=== PATIENT | female | born 1955 | race Hispanic/Latino ===

== ENCOUNTER 2018-02-22 07:35 | Day surgery (SDC) | payer MEDICARE ==
[~2018-02-22] VITALS: Ht 149.9 cm; Wt 71.7 kg
[~2018-02-22 07:35] MED LIST: ASPI-1005 PO; CALC667C4 PO; LACT10SO PO; LORA0.5T2 PO; METO50 PO; MINO2.5T3 PO; PANT20TA12 PO; SILD20TA14 PO; SODIUM CHLORIDE 0.9% 1000ML 1,000 ML IV ONE; VITA100C24 PO; VITA1CAP85 PO
[2018-02-22 08:29] VITALS: BP 163/74
[2018-02-22] MEDS ORDERED: PROPOFOL 10 MG/ML 20ML VIAL IV ONE (09:47)
[2018-02-22 10:02] LABS: CREATININE 7.8 mg/dL (0.5-1.5); POTASSIUM 5.1 mmol/L (3.5-5.1)
[2018-02-22 10:48] VITALS: BP 104/37
[2018-02-22 10:53] VITALS: BP 103/57
[2018-02-22 10:57] VITALS: BP 116/47
== END 2018-02-22 11:23 | disposition home or self-care (01) ==
LOC: ENDO 07:35 → DAH 07:35 → ENDO 11:23
PROVIDERS: ATTEND Internal Medicine Gastroenterology
DX: K29.50 Unspecified chronic gastritis without bleeding (principal); K21.9 Gastro-esophageal reflux disease without esophagitis; F32.9 Major depressive disorder, single episode, unspecified; F41.9 Anxiety disorder, unspecified; J45.909 Unspecified asthma, uncomplicated; I12.0 Hypertensive chronic kidney disease with stage 5 chronic kidney disease or end stage renal disease; N18.6 End stage renal disease; D64.9 Anemia, unspecified; K70.31 Alcoholic cirrhosis of liver with ascites; K76.6 Portal hypertension; K31.89 Other diseases of stomach and duodenum; K31.819 Angiodysplasia of stomach and duodenum without bleeding; K25.9 Gastric ulcer, unspecified as acute or chronic, without hemorrhage or perforation; Z86.73 Personal history of transient ischemic attack (TIA), and cerebral infarction without residual deficits; Z68.31 Body mass index [BMI] 31.0-31.9, adult; Z98.890 Other specified postprocedural states; Z79.899 Other long term (current) drug therapy; Z86.010 Personal history of colon polyps; Z79.82 Long term (current) use of aspirin
CPT/HCPCS: 36415; 43239; 80048; 82948; 84132; 88305; 88342; 93005; A4606; J2704; J7030

== ENCOUNTER → 2018-08-23 | Outpatient (CLI) | payer MEDICARE ==
[~2018-08-23] MED LIST changes: -SODIUM CHLORIDE 0.9% 1000ML 1,000 ML IV ONE
== END | disposition home or self-care (01) ==
LOC: SHCH 13:04
PROVIDERS: ATTEND Internal Medicine Cardiovascular Disease
DX: I08.3 Combined rheumatic disorders of mitral, aortic and tricuspid valves (principal); I11.9 Hypertensive heart disease without heart failure; I27.20 Pulmonary hypertension, unspecified
CPT/HCPCS: 93306

== ENCOUNTER → 2018-08-30 | Outpatient (CLI) | payer MEDICARE ==
[~2018-08-30] VITALS: Ht 149.9 cm; Wt 69.9 kg
[~2018-08-30] MED LIST changes: +REGADENOSON 0.4 MG/5 ML PF SYG IVP ONE; +REGADENOSON 0.4 MG/5 ML PF SYG IVP SCH
== END | disposition home or self-care (01) ==
LOC: SHCH 11:10
PROVIDERS: ATTEND Internal Medicine Cardiovascular Disease
DX: I10 Essential (primary) hypertension (principal)
CPT/HCPCS: 78452; 93017; 96374; A9500 ×2; J2785

== ENCOUNTER → 2020-02-01 | Outpatient (CLI) | payer MEDICARE ==
[~2020-02-01] MED LIST changes: +METO-391 PO; -PANT20TA12 PO; +PANT20TA18 PO; -REGADENOSON 0.4 MG/5 ML PF SYG IVP ONE; -REGADENOSON 0.4 MG/5 ML PF SYG IVP SCH; +ROPI0.5T7 PO; +calcium PO
== END ==
LOC: DAH 10:00 → EDSTATUS 02-06 07:00
PROVIDERS: ATTEND Internal Medicine Gastroenterology
DX: K92.1 Melena (principal); Z20.828 Contact with and (suspected) exposure to other viral communicable diseases; D62 Acute posthemorrhagic anemia; Z53.8 Procedure and treatment not carried out for other reasons
CPT/HCPCS: C9803; U0003

== ENCOUNTER 2020-07-25 05:37 | Inpatient (IN) | payer MEDICARE ==
[~2020-07-25 05:37] MED LIST changes: -ASPI-1005 PO; -CALC667C4 PO; -LACT10SO PO; +LACT10SO5 PO; -METO50 PO; -MINO2.5T3 PO; -SILD20TA14 PO; -VITA100C24 PO; +VITA100C26 PO; -VITA1CAP85 PO
[2020-07-25 06:11] LABS: BASOPHILS % (AUTO) 0.7 % (0.0-5.0); HEMATOCRIT 25.2 % (36-48); LYMPHOCYTES % (AUTO) 3.9 % (21.0-51.0); MEAN CORPUSCULAR HEMOGLOBIN 30.4 pg (27.0-33.0); MEAN CORPUSCULAR HGB CONC 31.3 g/dL (32.0-36.0); MEAN CORPUSCULAR VOLUME 96.9 fL (79-99); MONOCYTES % (AUTO) 18.1 % (3.0-13.0); PLATELET COUNT (AUTO) 145 K/uL (130-400); RED CELL DISTRIBUTION WIDTH 15.9 % (11.0-15.5); WHITE BLOOD COUNT (AUTO) 5.9 K/uL (4.8-10.8)
[2020-07-25 06:30] LABS: ALBUMIN 3.3 g/dL (3.5-5.0); BILIRUBIN,TOTAL 1.3 mg/dL (0.2-1.0); CREATININE 6.6 mg/dL (0.5-1.5); POTASSIUM 4.1 mmol/L (3.5-5.1); TOTAL PROTEIN, SERUM 6.3 g/dL (6.0-8.3)
[2020-07-25] MEDS ORDERED: ASPIRIN 81MG CHEW TAB ONE (09:07)
[2020-07-25 10:24] LABS: AMPHET/METH SCREEN,URINE NEGATIVE (NEGATIVE); BARBITURATE SCREEN, URINE NEGATIVE (NEGATIVE); BENZODIAZEPINES SCREEN,URINE NEGATIVE (NEGATIVE); CANNABINOID SCREEN,URINE NEGATIVE (NEGATIVE); COCAINE SCREEN,URINE NEGATIVE (NEGATIVE); OPIATE SCREEN,URINE NEGATIVE (NEGATIVE); PHENCYCLIDINE SCREEN,URINE NEGATIVE (NEGATIVE)
[2020-07-25] MEDS ORDERED: ASPIRIN 81MG CHEW TAB PO SCH (10:27)
[2020-07-25 14:27] LABS: ABG BASE EXCESS 2.6 mmol/L (-2.0-3.0); ABG OXYGEN SATURATION 92.1 % (95.0-99.0); ABG PCO2 41 mmHg (32-45)
[2020-07-25] MEDS: HEPARIN 5,000 UNIT VIAL SQ SCH (16:15)
[2020-07-25] MEDS: LACTULOSE 20 GM/30 ML UDCUP PO SCH (16:15)
[2020-07-25] MEDS ORDERED: ZOSYN 3.375GM+NS 50ML 50 ML IV ONE (18:25)
[2020-07-25] MEDS ORDERED: ACETAMINOPHEN 650 MG SUPPOSITORY RC ONE (18:26)
[2020-07-25 23:30] VITALS: BP 127/56
[2020-07-26] MEDS: LACTULOSE 20 GM/30 ML UDCUP PO SCH ×3 (01:55→18:08)
[2020-07-26] MEDS: HEPARIN 5,000 UNIT VIAL SQ SCH ×3 (02:13→18:09)
[2020-07-26 04:00] VITALS: BP 138/58
[2020-07-26 04:05] LABS: HEMATOCRIT 23.5 % (36-48); MEAN CORPUSCULAR HGB CONC 31.5 g/dL (32.0-36.0); MEAN CORPUSCULAR VOLUME 95.1 fL (79-99); PLATELET COUNT (AUTO) 157 K/uL (130-400); RED BLOOD CELL COUNT(AUTO) 2.47 MIL/uL (4.00-5.50); RED CELL DISTRIBUTION WIDTH 16.7 % (11.0-15.5); WHITE BLOOD COUNT (AUTO) 4.1 K/uL (4.8-10.8)
[2020-07-26 04:31] LABS: PHOSPHORUS 6.2 mg/dL (2.5-4.9); POTASSIUM 4.4 mmol/L (3.5-5.1)
[2020-07-26 04:41] LABS: CREATININE 8.4 mg/dL (0.5-1.5)
[2020-07-26 04:42] LABS: BASOPHILS % (MANUAL) 1 % (0-2); EOSINOPHILS % (MANUAL) 5 % (1-6); LYMPHOCYTES % (MANUAL) 6 % (22-44); MAN.DIFF COMMENT-IMPRESSION MANUAL DIFFERENTIAL; MONOCYTES % (MANUAL) 14 % (2-9); SEGMENTED NEUTROPHILS % 74 % (40-70)
[2020-07-26 08:55] VITALS: BP 134/63
[2020-07-26 13:17] VITALS: BP 120/53
[2020-07-26 16:00] VITALS: BP 114/41
[2020-07-26 20:00] VITALS: BP 115/41
[2020-07-26] MEDS: TRAMADOL HCL 50 MG TABLET PO PRN (21:05)
[2020-07-27] VITALS: BP 105/47
[2020-07-27] MEDS: LACTULOSE 20 GM/30 ML UDCUP PO SCH ×2 (00:15→07:49)
[2020-07-27] MEDS: HEPARIN 5,000 UNIT VIAL SQ SCH ×3 (01:01→16:23)
[2020-07-27 04:00] VITALS: BP 186/80
[2020-07-27 05:03] LABS: BASOPHILS % (AUTO) 1.1 % (0.0-5.0); EOSINOPHILS % (AUTO) 3.8 % (0.0-8.0); HEMATOCRIT 26.7 % (36-48); LYMPHOCYTES % (AUTO) 8.5 % (21.0-51.0); MEAN CORPUSCULAR HEMOGLOBIN 30.1 pg (27.0-33.0); MEAN CORPUSCULAR HGB CONC 30.7 g/dL (32.0-36.0); MEAN CORPUSCULAR VOLUME 98.2 fL (79-99); MONOCYTES % (AUTO) 23.6 % (3.0-13.0); NEUTROPHILS % (AUTO) 62.8 % (40.0-77.0); PLATELET COUNT (AUTO) 171 K/uL (130-400); RED BLOOD CELL COUNT(AUTO) 2.72 MIL/uL (4.00-5.50); RED CELL DISTRIBUTION WIDTH 17.5 % (11.0-15.5); WHITE BLOOD COUNT (AUTO) 4.5 K/uL (4.8-10.8)
[2020-07-27 05:26] LABS: ALBUMIN 3.3 g/dL (3.5-5.0); BILIRUBIN,TOTAL 1.3 mg/dL (0.2-1.0); CREATININE 6.2 mg/dL (0.5-1.5); POTASSIUM 3.9 mmol/L (3.5-5.1); TOTAL PROTEIN, SERUM 6.5 g/dL (6.0-8.3)
[2020-07-27] MEDS ORDERED: KETOROLAC 30MG VIAL (30MG/ML) ONE (05:40)
[2020-07-27] MEDS ORDERED: KETOROLAC 15MG/ML VIAL (15MG/ML) IV ONE (05:45)
[2020-07-27] MEDS: TRAMADOL HCL 50 MG TABLET PO PRN ×2 (07:47→20:53)
[2020-07-27 08:00] VITALS: BP 135/45
[2020-07-27 11:58] VITALS: BP 124/51
[2020-07-27] MEDS ORDERED: ONDANSETRON 4MG INJ IVP PRN (13:15)
[2020-07-27 16:00] VITALS: BP 104/53
[2020-07-27 19:00] VITALS: BP 131/63
[2020-07-27] MEDS: DOCUSATE SODIUM 100 MG CAP PO SCH (20:51)
[2020-07-27] MEDS: SENNOSIDES 8.6 MG TABLET PO SCH (20:51)
[2020-07-28] VITALS: BP 147/58
[2020-07-28] MEDS ORDERED: CLONAZEPAM 1MG TAB PO ONE (00:15)
[2020-07-28] MEDS ORDERED: CLONAZEPAM 0.5 MG TABLET ONE (00:29)
[2020-07-28] MEDS: HEPARIN 5,000 UNIT VIAL SQ SCH ×2 (00:35→08:00)
[2020-07-28 04:00] VITALS: BP 140/64
[2020-07-28] MEDS ORDERED: LACTULOSE 20 GM/30 ML UDCUP PO SCH ×2 (05:00→10:30)
[2020-07-28 05:31] LABS: BASOPHILS % (AUTO) 1.4 % (0.0-5.0); EOSINOPHILS % (AUTO) 6.9 % (0.0-8.0); HEMATOCRIT 23.3 % (36-48); LYMPHOCYTES % (AUTO) 12.2 % (21.0-51.0); MEAN CORPUSCULAR HGB CONC 30.5 g/dL (32.0-36.0); MEAN CORPUSCULAR VOLUME 98.3 fL (79-99); MONOCYTES % (AUTO) 23.6 % (3.0-13.0); NEUTROPHILS % (AUTO) 55.6 % (40.0-77.0); PLATELET COUNT (AUTO) 137 K/uL (130-400); RED BLOOD CELL COUNT(AUTO) 2.37 MIL/uL (4.00-5.50); RED CELL DISTRIBUTION WIDTH 17.3 % (11.0-15.5); WHITE BLOOD COUNT (AUTO) 2.9 K/uL (4.8-10.8)
[2020-07-28 05:52] LABS: BILIRUBIN,TOTAL 1.1 mg/dL (0.2-1.0); CREATININE 7.4 mg/dL (0.5-1.5); POTASSIUM 4.2 mmol/L (3.5-5.1)
[2020-07-28 06:21] LABS: BASOPHILS % (MANUAL) 3 % (0-2); EOSINOPHILS % (MANUAL) 8 % (1-6); LYMPHOCYTES % (MANUAL) 9 % (22-44); MAN.DIFF COMMENT-IMPRESSION MANUAL DIFFERENTIAL; MONOCYTES % (MANUAL) 29 % (2-9); REACTIVE LYMPHOCYTES 1 % (0-0); SEGMENTED NEUTROPHILS % 50 % (40-70)
[2020-07-28] MEDS: SENNOSIDES 8.6 MG TABLET PO SCH (08:02)
[2020-07-28] MEDS: DOCUSATE SODIUM 100 MG CAP PO SCH (08:02)
[2020-07-28] MEDS ORDERED: METO25TA6 PO (08:45)
[2020-07-28] MEDS ORDERED: ASPI-1197 PO (10:12)
[2020-07-28] MEDS ORDERED: ROPINIROLE HCL 0.25 MG TABLET PO SCH (10:29)
[2020-07-28] MEDS ORDERED: METOPROLOL TARTRATE 25 MG TAB PO SCH (10:29)
[2020-11-03] MEDS ORDERED: RIFA500P4 MC (10:12)
== END 2020-07-28 11:44 | disposition home or self-care (01) | DRG 70 ==
LOC: EDH 05:37 → EDHIP 07:25 → OBSVTOIN 07:25 → 4BH 23:36
PROVIDERS: ADMIT Internal Medicine; ATTEND Internal Medicine
PROC: 5A1D70Z Performance of Urinary Filtration, Intermittent, Less than 6 Hours Per Day (ICD-10-PCS; principal; 2020-07-26)
DX: G93.41 Metabolic encephalopathy (principal); N18.6 End stage renal disease; I12.0 Hypertensive chronic kidney disease with stage 5 chronic kidney disease or end stage renal disease; R74.8 Abnormal levels of other serum enzymes; K74.60 Unspecified cirrhosis of liver; F41.9 Anxiety disorder, unspecified; I44.0 Atrioventricular block, first degree; D64.9 Anemia, unspecified; E11.22 Type 2 diabetes mellitus with diabetic chronic kidney disease; I25.10 Atherosclerotic heart disease of native coronary artery without angina pectoris; W19.XXXA Unspecified fall, initial encounter; Y93.89 Activity, other specified; Y92.090 Kitchen in other non-institutional residence as the place of occurrence of the external cause; Y99.8 Other external cause status; Z99.2 Dependence on renal dialysis; Z88.5 Allergy status to narcotic agent; Z83.3 Family history of diabetes mellitus; Z82.0 Family history of epilepsy and other diseases of the nervous system; Z82.3 Family history of stroke; Z82.5 Family history of asthma and other chronic lower respiratory diseases; Z80.9 Family history of malignant neoplasm, unspecified; Z82.49 Family history of ischemic heart disease and other diseases of the circulatory system
CPT/HCPCS: 36415; 36600; 70450; 73560; 74018; 76705; 80048; 80053; 80305; 82140; 82550; 82803; 83735; 84100; 84484; 85025; 86850; 86900; 86901; 86923; 90935; 93005; 93306; 93356; 93971; G0378; J1644; J1885; J2405; J2543

== ENCOUNTER 2020-11-02 14:05 | Inpatient (IN) | payer MEDICARE ==
[~2020-11-02] VITALS: Ht 154.9 cm; Wt 64.9 kg
[2020-11-02] VITALS (7 sets, daily range): BP systolic 124–198; BP diastolic 38–92
[~2020-11-02 14:05] MED LIST changes: +ASPI-1197 PO; -METO-391 PO; +METO25TA6 PO
[2020-11-02] MEDS ORDERED: PREDNISONE 20 MG TABLET ONE (15:29)
[2020-11-02] MEDS ORDERED: ACETAMINOPHEN 325 MG TAB ONE (15:29)
[2020-11-02 15:52] LABS: BASOPHILS % (AUTO) 1.3 % (0.0-5.0); EOSINOPHILS % (AUTO) 3.5 % (0.0-8.0); LYMPHOCYTES % (AUTO) 11.7 % (21.0-51.0); MEAN CORPUSCULAR HEMOGLOBIN 32.4 pg (27.0-33.0); MEAN CORPUSCULAR HGB CONC 28.2 g/dL (32.0-36.0); MEAN CORPUSCULAR VOLUME 114.8 fL (79-99); MONOCYTES % (AUTO) 16.1 % (3.0-13.0); NEUTROPHILS % (AUTO) 67.2 % (40.0-77.0); NUCLEATED RED BLOOD CELLS 0.4 % (0.0-0.19); PLATELET COUNT (AUTO) 208 K/uL (130-400); RED BLOOD CELL COUNT(AUTO) 1.82 MIL/uL (4.00-5.50); RED CELL DISTRIBUTION WIDTH 20.3 % (11.0-15.5); WHITE BLOOD COUNT (AUTO) 4.6 K/uL (4.8-10.8)
[2020-11-02 15:54] LABS: HEMATOCRIT 20.9 % (36-48)
[2020-11-02 16:07] LABS: CREATININE 6.4 mg/dL (0.5-1.5); POTASSIUM 4.4 mmol/L (3.5-5.1)
[2020-11-02 16:12] LABS: ALBUMIN 2.6 g/dL (3.5-5.0); BILIRUBIN,TOTAL 0.6 mg/dL (0.2-1.0); CRP QUANTITATIVE 5.9 mg/L (0.00-9.0); TOTAL PROTEIN, SERUM 5.6 g/dL (6.0-8.3)
[2020-11-02] MEDS ORDERED: DIPHENHYDRAMINE HCL 25 MG CAPSULE PO PRN (17:00)
[2020-11-02] MEDS ORDERED: ONDANSETRON HCL 4 MG/2 ML VIAL IV PRN (17:00)
[2020-11-02] MEDS ORDERED: DiphenhydrAMINE HCL 50 MG/ML VIAL IV PRN (17:00)
[2020-11-02] MEDS ORDERED: GUAIFENESIN-DM 200/20 MG 10 ML PO PRN (17:00)
[2020-11-02] MEDS ORDERED: LACTULOSE 20 GM/30 ML UDCUP PO PRN (17:00)
[2020-11-02] MEDS ORDERED: MAG HYDROX/AL HYDROX/SIMETH ES 30 ML SUSP UDCUP PO PRN (17:00)
[2020-11-02] MEDS ORDERED: NITROGLYCERIN 0.4 MG SL TAB SL PRN (17:00)
[2020-11-02] MEDS ORDERED: ACETAMINOPHEN 325 MG TAB PO PRN ×2 (17:00)
[2020-11-02 20:34] LABS: HEMATOCRIT 24.9 % (36-48)
[2020-11-02] MEDS: RIFAXIMIN 550 MG TABLET PO SCH (20:50)
[2020-11-02] MEDS: PANTOPRAZOLE 40 MG/VIAL IVP SCH (20:50)
[2020-11-02 23:26] LABS: TROPONIN I 0.31 ng/mL (0.00-0.06)
[2020-11-03] VITALS (10 sets, daily range): BP systolic 103–158; BP diastolic 34–55
[2020-11-03 07:01] LABS: BASOPHILS % (AUTO) 2.1 % (0.0-5.0); EOSINOPHILS % (AUTO) 5.8 % (0.0-8.0); HEMATOCRIT 23.8 % (36-48); LYMPHOCYTES % (AUTO) 11.3 % (21.0-51.0); MEAN CORPUSCULAR HEMOGLOBIN 32.9 pg (27.0-33.0); MEAN CORPUSCULAR HGB CONC 29.8 g/dL (32.0-36.0); MEAN CORPUSCULAR VOLUME 110.2 fL (79-99); MONOCYTES % (AUTO) 19.2 % (3.0-13.0); NEUTROPHILS % (AUTO) 61.1 % (40.0-77.0); PLATELET COUNT (AUTO) 184 K/uL (130-400); RED BLOOD CELL COUNT(AUTO) 2.16 MIL/uL (4.00-5.50); RED CELL DISTRIBUTION WIDTH 20.3 % (11.0-15.5); WHITE BLOOD COUNT (AUTO) 4.3 K/uL (4.8-10.8)
[2020-11-03 07:17] LABS: ALBUMIN 2.5 g/dL (3.5-5.0); BILIRUBIN,TOTAL 0.8 mg/dL (0.2-1.0); CREATININE 7.1 mg/dL (0.5-1.5); POTASSIUM 4.8 mmol/L (3.5-5.1); TOTAL PROTEIN, SERUM 5.4 g/dL (6.0-8.3)
[2020-11-03 07:26] LABS: TROPONIN I 0.29 ng/mL (0.00-0.06)
[2020-11-03] MEDS: Vitamin B Complex/Vit C/Folic Acid PO SCH (07:44)
[2020-11-03] MEDS: PANTOPRAZOLE 40 MG/VIAL IVP SCH ×2 (07:44→21:25)
[2020-11-03] MEDS: RIFAXIMIN 550 MG TABLET PO SCH ×2 (07:52→21:25)
[2020-11-03] MEDS ORDERED: OFLO5DRO21 OT (10:12)
[2020-11-03] MEDS ORDERED: RIFA500P3 MC (10:12)
[2020-11-03] MEDS ORDERED: FOLI0.8T22 PO (10:12)
[2020-11-03] MEDS ORDERED: EPOETIN ALFA-EPBX (ESRD) 10,000 UNIT/ML VIAL SQ SCH (12:15)
[2020-11-03] MEDS ORDERED: TRAMADOL HCL 50 MG TABLET PO PRN (13:00)
[2020-11-03 17:45] LABS: HEMATOCRIT 24.5 % (36-48)
[2020-11-03 19:27] LABS: INR 1.02 (0.85-1.15); PROTHROMBIN TIME 11.1 SEC (9.6-11.6)
[2020-11-03 19:28] LABS: PARTIAL THROMBOPLASTIN TIME 25.4 SEC (26.3-35.5)
[2020-11-04] VITALS (34 sets, daily range): BP systolic 99–130; BP diastolic 24–59
[2020-11-04 03:47] LABS: BASOPHILS % (AUTO) 1.1 % (0.0-5.0); HEMATOCRIT 23.8 % (36-48); LYMPHOCYTES % (AUTO) 10.6 % (21.0-51.0); MEAN CORPUSCULAR HEMOGLOBIN 31.7 pg (27.0-33.0); MEAN CORPUSCULAR HGB CONC 29.8 g/dL (32.0-36.0); MEAN CORPUSCULAR VOLUME 106.3 fL (79-99); MONOCYTES % (AUTO) 15.4 % (3.0-13.0); NEUTROPHILS % (AUTO) 67.7 % (40.0-77.0); NUCLEATED RED BLOOD CELLS 0.4 % (0.0-0.19); PLATELET COUNT (AUTO) 195 K/uL (130-400); RED BLOOD CELL COUNT(AUTO) 2.24 MIL/uL (4.00-5.50); RED CELL DISTRIBUTION WIDTH 18.8 % (11.0-15.5); WHITE BLOOD COUNT (AUTO) 4.6 K/uL (4.8-10.8)
[2020-11-04 04:02] LABS: ALBUMIN 2.6 g/dL (3.5-5.0); BILIRUBIN,TOTAL 0.6 mg/dL (0.2-1.0); POTASSIUM 4.8 mmol/L (3.5-5.1); TOTAL PROTEIN, SERUM 5.6 g/dL (6.0-8.3)
[2020-11-04 04:09] LABS: CREATININE 8.2 mg/dL (0.5-1.5)
[2020-11-04] MEDS: PANTOPRAZOLE 40 MG/VIAL IVP SCH ×2 (09:00→20:04)
[2020-11-04] MEDS: Vitamin B Complex/Vit C/Folic Acid PO SCH (09:00)
[2020-11-04] MEDS: RIFAXIMIN 550 MG TABLET PO SCH ×2 (09:00→20:04)
[2020-11-04] MEDS ORDERED: ATROPINE SULFATE 0.1 MG/ML 10 ML SYG IVP ONE (10:36)
[2020-11-04] MEDS ORDERED: PROPOFOL 10 MG/ML 20ML VIAL IV ONE (10:36)
[2020-11-04] MEDS ORDERED: SUCCINYLCHOLINE 200MG/10ML SYR ONE (10:37)
[2020-11-04] MEDS ORDERED: LIDOCAINE HCL 1% 20 ML VIAL ONE (10:40)
[2020-11-04] MEDS ORDERED: PHENYLEPHRINE HCL 10 MG/ML 1ML VIAL IV ONE (10:40)
[2020-11-04] MEDS: LACTULOSE 20 GM/30 ML UDCUP PO SCH ×3 (14:00→17:16)
[2020-11-04] MEDS ORDERED: MAGNESIUM CITRATE 296 ML SOLUTION PO SCH (15:00)
[2020-11-04] MEDS ORDERED: PEG 3350/NA SULF,BICARB,CL/KCL 4000 ML SOLN PO SCH (16:00)
[2020-11-05] VITALS (17 sets, daily range): BP systolic 103–142; BP diastolic 46–65
[2020-11-05 04:04] LABS: BASOPHILS % (AUTO) 1.2 % (0.0-5.0); EOSINOPHILS % (AUTO) 4.1 % (0.0-8.0); HEMATOCRIT 24.6 % (36-48); LYMPHOCYTES % (AUTO) 8.5 % (21.0-51.0); MEAN CORPUSCULAR HEMOGLOBIN 31.3 pg (27.0-33.0); MEAN CORPUSCULAR HGB CONC 30.5 g/dL (32.0-36.0); MEAN CORPUSCULAR VOLUME 102.5 fL (79-99); MONOCYTES % (AUTO) 14.1 % (3.0-13.0); NEUTROPHILS % (AUTO) 71.9 % (40.0-77.0); PLATELET COUNT (AUTO) 143 K/uL (130-400); RED CELL DISTRIBUTION WIDTH 19.7 % (11.0-15.5); WHITE BLOOD COUNT (AUTO) 4.1 K/uL (4.8-10.8)
[2020-11-05 04:12] LABS: ALBUMIN 2.4 g/dL (3.5-5.0); CREATININE 5.6 mg/dL (0.5-1.5); POTASSIUM 3.7 mmol/L (3.5-5.1)
[2020-11-05] MEDS: PANTOPRAZOLE 40 MG/VIAL IVP SCH (07:12)
[2020-11-05] MEDS: RIFAXIMIN 550 MG TABLET PO SCH (07:19)
[2020-11-05] MEDS: Vitamin B Complex/Vit C/Folic Acid PO SCH (07:19)
[2020-11-05] MEDS ORDERED: PROPOFOL 10 MG/ML 20ML VIAL IV ONE (10:25)
[2020-11-05] MEDS ORDERED: LIDOCAINE HCL 1% 20 ML VIAL ONE (10:26)
[2020-11-05] MEDS ORDERED: EPHEDRINE SULFATE 50 MG/ML AMPULE ONE (10:33)
[2020-11-05] MEDS ORDERED: EPOETIN ALFA-EPBX (NON-ESRD) 10,000 UNIT/ML VIAL SQ SCH (11:00)
[2020-11-05] MEDS ORDERED: METO25 PO (16:27)
[2020-11-05] MEDS ORDERED: RIFAXIMIN MC SCH (21:00)
[2020-11-05] MEDS ORDERED: METOPROLOL TARTRATE 25 MG TAB PO SCH (21:00)
[2020-11-05] MEDS ORDERED: LORAZEPAM 0.5 MG TABLET PO SCH (21:00)
[2020-11-06] MEDS ORDERED: NON-FORMULARY MEDICATION 1 EACH (Lactulose 20 GM) PO SCH (09:00)
[2020-11-06] MEDS ORDERED: LACTULOSE 20 GM/30 ML UDCUP PO SCH (09:00)
[2020-11-06] MEDS ORDERED: NON-FORMULARY MEDICATION 1 EACH (Folic Acid/Vitamin B Comp W-C (Rena-Vite Tablet) 0.8 MG) PO SCH (09:00)
[2020-11-06] MEDS ORDERED: VITAMIN E 100 UNIT PO SCH (09:00)
[2020-11-06] MEDS ORDERED: NON-FORMULARY MEDICATION 1 EACH (Pantoprazole Sodium 20 MG) PO SCH (09:00)
== END 2020-11-05 18:15 | disposition home or self-care (01) | DRG 368 ==
LOC: EDH 14:05 → EDHIP 16:49 → 4AH 11-03 08:17
PROVIDERS: ADMIT Family Medicine; ATTEND Family Medicine
PROC: 30233N1 Transfusion of Nonautologous Red Blood Cells into Peripheral Vein, Percutaneous Approach (ICD-10-PCS; principal; 2020-11-02)
PROC: 0DB98ZX Excision of Duodenum, Via Natural or Artificial Opening Endoscopic, Diagnostic (ICD-10-PCS; 2020-11-04)
PROC: 0DB68ZX Excision of Stomach, Via Natural or Artificial Opening Endoscopic, Diagnostic (ICD-10-PCS; 2020-11-04)
PROC: 5A1D70Z Performance of Urinary Filtration, Intermittent, Less than 6 Hours Per Day (ICD-10-PCS; 2020-11-04)
PROC: 0DJD8ZZ Inspection of Lower Intestinal Tract, Via Natural or Artificial Opening Endoscopic (ICD-10-PCS; 2020-11-05)
DX: K21.01 Gastro-esophageal reflux disease with esophagitis, with bleeding (principal); N18.6 End stage renal disease; K29.01 Acute gastritis with bleeding; I24.8 Other forms of acute ischemic heart disease; R18.8 Other ascites; D62 Acute posthemorrhagic anemia; I12.0 Hypertensive chronic kidney disease with stage 5 chronic kidney disease or end stage renal disease; E78.00 Pure hypercholesterolemia, unspecified; E78.5 Hyperlipidemia, unspecified; E11.22 Type 2 diabetes mellitus with diabetic chronic kidney disease; D53.9 Nutritional anemia, unspecified; G89.29 Other chronic pain; I25.10 Atherosclerotic heart disease of native coronary artery without angina pectoris; K64.2 Third degree hemorrhoids; D50.9 Iron deficiency anemia, unspecified; K74.69 Other cirrhosis of liver; M54.9 Dorsalgia, unspecified; Z79.899 Other long term (current) drug therapy; Z82.0 Family history of epilepsy and other diseases of the nervous system; Z82.3 Family history of stroke; Z82.49 Family history of ischemic heart disease and other diseases of the circulatory system; Z82.5 Family history of asthma and other chronic lower respiratory diseases; Z83.3 Family history of diabetes mellitus; Z86.73 Personal history of transient ischemic attack (TIA), and cerebral infarction without residual deficits; Z99.2 Dependence on renal dialysis
CPT/HCPCS: 36415; 36430; 43239; 45378; 80053; 82270; 82550; 82948; 83540; 83550; 83874; 84484; 85014; 85018; 85025; 85610; 85730; 86140; 86677; 86850; 86900; 86901; 86923; 90935; A4606; C9113; G0378; J0330; J0461; J2370; J2704; J3490; J7030; P9016; Q0163